=== PATIENT | female | born 2000 | race Caucasian/White ===

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

== ENCOUNTER 2022-04-10 15:53 | Inpatient (IN) ==
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
[2022-04-10 17:12] LABS: Appearance Urine Turbid (Clear); Bacteria Urine Automated 1+ (Negative); Bilirubin Urine Negative (Negative); Blood Urine Negative (Negative); Color Urine Yellow; Epithelial Cell Urine Auto >30 /lpf (0-5); Glucose Urine UA Negative (Negative); Ketones Urine Negative (Negative); Leukocyte Esterase Urine Trace (Negative); Nitrite Urine Negative (Negative); Protein Urine Negative (Negative); RBC Urine Automated 0-4 /hpf (0-4); Specific Gravity Urine 1.019 (1.000-1.030); Urobilinogen Urine Negative (Negative)
[2022-04-10 17:34] LABS: Amphetamines+Metham, Urine Neg (Neg); Barbiturates, Urine Neg (Neg); Benzodiazepine, Urine Neg (Neg); Cocaine, Urine Neg (Neg); MDMA (Ecstacy), Urine Neg (Neg); Methadone, Urine Neg (Neg); Opiate, Urine Neg (Neg); Phencyclidine, Urine Neg (Neg)
[2022-04-10 17:43] LABS: Basophils # (auto) 0.04 K/uL (0-0.2); Basophils % (auto) 0.6 %; Eosinophils # (auto) 0.11 K/uL (0-0.50); Eosinophils % (auto) 1.7 %; Hematocrit (blood only) 33.9 % (34.1-44.9); Hemoglobin 10.9 g/dl (12.0-16.0); Immature Granulocytes # (auto) 0.01 K/uL (0.00-0.02); Immature Granulocytes % (auto) 0.2 %; Lymphocytes # (auto) 2.13 K/uL (1.2-3.4); Lymphocytes % (auto) 32.6 %; Mean Corpuscular Hemoglobin 24.9 pg (25.0-34.0); Mean Corpuscular Hgb Conc 32.2 g/dL (32.0-36.0); Mean Corpuscular Volume 77.4 fL (80.0-100.0); Mean Platelet Volume 9.8 fL (9.4-12.3); Monocytes # (auto) 0.35 K/uL (0.24-0.82); Monocytes % (auto) 5.4 %; Neutrophils # (auto) 3.89 K/uL (1.4-6.5); Neutrophils % (auto) 59.5 %; Platelet Count 343 K/uL (130-400); RDW Coefficient of Variation 16.6 % (11.5-14.5); RDW Standard Deviation 45.4 fL (36.4-46.3); Red Blood Count 4.38 M/uL (3.93-5.22); White Blood Count 6.53 K/ul (4.8-10.8)
[2022-04-10 18:04] LABS: Pregnancy Test, Serum Negative (Negative)
[2022-04-10 18:12] LABS: Albumin Globulin Ratio 1.4 (0.9-2); Albumin Level 4.1 gm/dl (3.4-5.0); Bilirubin,Total 0.4 mg/dl (0.2-1.0); Calcium 8.6 mg/dl (8.5-10.1); Creatinine Clr Calc Pharmacy 100.5 ml/min; Est GFR (African American) 94.6 ml/min; Est GFR (Non-African American) 81.6 ml/min; Globulin 2.9 gm/dl (2.5-4.0); Potassium 4.1 mmol/L (3.5-5.1)
[2022-04-10 18:13] LABS: Acetaminophen < 3 ug/ml (10-30); Salicylate < 3.0 mg/dl (3.0-30)
[2022-04-10] MEDS ORDERED: MAGNESIUM HYDROXIDE SUSP 30 ML UDC PO PRN (21:40)
[2022-04-10] MEDS ORDERED: ALUMINUM/MAGNESIUM SUSP 30 ML UDC PO PRN (21:40)
[2022-04-10] MEDS ORDERED: hydrOXYzine HCl 25 MG TAB PO PRN ×2 (21:40)
[2022-04-10] MEDS ORDERED: ACETAMINOPHEN 325 MG TAB PO PRN (21:40)
[2022-04-10] MEDS ORDERED: SODIUM CHLORIDE 0.65% NA SOLN 45 ML (OCEAN) PRN (21:40)
[2022-04-10] MEDS ORDERED: BISMUTH SUBSALICYLATE LIQD 236 ML PO PRN (21:40)
[2022-04-10] MEDS: PRAZOSIN HCL 1 MG CAP PO SCH (22:30)
[2022-04-11] MEDS ORDERED: FLUARIX QUADRIVALENT 0.5 ML SYR IM ONE (09:00)
[2022-04-11] MEDS: buPROPion XL 150 MG TABCR PO SCH (11:17)
[2022-04-11] MEDS: NICOTINE 21 MG/24 HR TDSY TD SCH (11:18)
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
[2022-04-11] MEDS: ESCITALOPRAM OXALATE 10 MG TAB PO SCH (21:26)
[2022-04-11] MEDS: PRAZOSIN HCL 1 MG CAP PO SCH (21:26)
[2022-04-11] MEDS ORDERED: buPROPion XL 150 MG TABCR PO SCH (22:00)
[2022-04-12] MEDS: buPROPion XL 150 MG TABCR PO SCH (09:06)
[2022-04-12] MEDS: NICOTINE 21 MG/24 HR TDSY TD SCH (09:06)
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
[2022-04-12 16:52] LABS: Ferritin 4.3 ng/ml (8-388)
[2022-04-12 17:01] LABS: Vitamin D, 25 Hydrox 21.3 ng/ml (20-100)
[2022-04-12] MEDS: PRAZOSIN HCL 1 MG CAP PO SCH (21:10)
[2022-04-12] MEDS: ESCITALOPRAM OXALATE 10 MG TAB PO SCH (21:10)
[2022-04-13] MEDS: NICOTINE 21 MG/24 HR TDSY TD SCH (08:45)
[2022-04-13] MEDS: buPROPion XL 150 MG TABCR PO SCH (08:46)
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
== END 2022-04-13 15:08 | disposition home or self-care (01) | DRG 881 ==
LOC: ED 15:53 → 3S 21:37